=== PATIENT | female | born 1995 | race Asian ===

== ENCOUNTER 2018-06-19 20:48 | Emergency (ER) | payer OTHER ==
[~2018-06-19] VITALS: Ht 170.2 cm; Wt 49.9 kg
[2018-06-20] MEDS ORDERED: methylPREDNISolone SOD SUCC 125 MG/2 ML VL IM ONE (00:45)
[2018-06-20] MEDS ORDERED: BACLOFEN 10 MG TAB PO ONE (00:45)
[2018-06-20] MEDS ORDERED: TETANUS-DIPTH-ACEL PERTUSSIS 0.5ML SYRG IM ONE (00:52)
[2018-06-20 01:01] VITALS: BP 103/58
== END 2018-06-20 01:34 | disposition home or self-care (01) ==
LOC: ER 20:48 → EDBD 20:48 → ER 06-20 01:34
DX: S00.03XA Contusion of scalp, initial encounter (principal); M62.838 Other muscle spasm; M54.2 Cervicalgia; W18.39XA Other fall on same level, initial encounter; Y93.23 Activity, snow (alpine) (downhill) skiing, snowboarding, sledding, tobogganing and snow tubing; Y99.8 Other external cause status; Y92.89 Other specified places as the place of occurrence of the external cause
CPT/HCPCS: 70450; 72125; 90471; 90715; 96372; 99284; J2930